=== PATIENT | female | born 2000 | race African-American/Black ===

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

== ENCOUNTER 2018-03-02 18:19 | Emergency (ER) | payer SELFPAY ==
[2018-03-02 19:13] LABS: EOSINOPHILS % (AUTO) 2.5 % (0.0-8.0); HEMATOCRIT 39.1 % (36-48); MEAN CORPUSCULAR HEMOGLOBIN 31.9 pg (27.0-33.0); MEAN CORPUSCULAR HGB CONC 33.6 g/dL (32.0-36.0); MEAN CORPUSCULAR VOLUME 94.9 fL (80-100); MONOCYTES % (AUTO) 23.6 % (3.0-13.0); NEUTROPHILS % (AUTO) 62.9 % (40.0-77.0); NUCLEATED RED BLOOD CELLS 0.1 % (0.0-0.19); PLATELET COUNT (AUTO) 398 K/uL (130-400); RED BLOOD CELL COUNT(AUTO) 4.13 MIL/uL (4.00-5.50)
[2018-03-02 19:35] LABS: CARBON DIOXIDE 28 mmol/L (21-32); CHLORIDE 108 mmol/L (101-111); CREATININE 0.9 mg/dL (0.5-1.5); GLOMERULAR FILTR. RATE CALC 104 mL/min (>60); GLUCOSE,RANDOM 91 mg/dL (70-105); POTASSIUM 4.3 mmol/L (3.5-5.1); SODIUM SERUM 146 mmol/L (136-145); UREA NITROGEN, BLOOD 11 mg/dL (7-18)
[2018-03-02 19:45] LABS: ALANINE AMINOTRANSFERASE 25 U/L (12-78); ALBUMIN 4.3 g/dL (3.5-5.0); ALCOHOL, BLOOD 156 mg/dL (0-10); ASPARTATE AMINOTRANSFERASE 29 U/L (10-37); BILIRUBIN,TOTAL 0.3 mg/dL (0.2-1.0); SALICYLATE 3.2 mg/dL (2.8-20.0); TOTAL PROTEIN, SERUM 8.4 g/dL (6.0-8.3)
[2018-03-02 19:57] LABS: ACETAMINOPHEN < 1 mcg/mL (10-30)
[2018-03-02 20:00] LABS: APPEARANCE,URINE Cloudy (CLEAR); BILIRUBIN,URINE Negative (NEGATIVE); COLOR,URINE Yellow (YELLOW); GLUCOSE, URINE (UA) Negative (NEGATIVE); KETONES,URINE Trace mg/dL (NEGATIVE); LEUKOCYTE ESTERASE ,URINE Small (NEGATIVE); NITRATE,URINE Negative (NEGATIVE); OCCULT BLOOD,URINE Moderate (NEGATIVE); PH,URINE 5.5 (5.0-8.0); PROTEIN,URINE POS 1+ (NEGATIVE)
[2018-03-02 20:02] LABS: HCG,QUAL RESULT NEGATIVE (NEGATIVE)
[2018-03-02 20:08] LABS: AMPHET/METH SCREEN,URINE NEGATIVE (NEGATIVE); BACTERIA,URINE Few /HPF (None Seen); BARBITURATE SCREEN, URINE NEGATIVE (NEGATIVE); BENZODIAZEPINES SCREEN,URINE POSITIVE (NEGATIVE); CANNABINOID SCREEN,URINE POSITIVE (NEGATIVE); COCAINE SCREEN,URINE NEGATIVE (NEGATIVE); MUCUS,URINE Many LPF (None Seen); OPIATE SCREEN,URINE NEGATIVE (NEGATIVE); PHENCYCLIDINE SCREEN,URINE NEGATIVE (NEGATIVE); SQUAMOUS EPITHELIAL CELL,UR 30-50 /HPF (0-2); WBC,URINE 0-1 /HPF (0-1)
== END 2018-03-03 04:54 | disposition home or self-care (01) ==
LOC: EDH 18:19
DX: F43.0 Acute stress reaction (principal); F10.10 Alcohol abuse, uncomplicated; F12.10 Cannabis abuse, uncomplicated; F13.10 Sedative, hypnotic or anxiolytic abuse, uncomplicated; E07.9 Disorder of thyroid, unspecified; F41.9 Anxiety disorder, unspecified; F32.9 Major depressive disorder, single episode, unspecified; F90.9 Attention-deficit hyperactivity disorder, unspecified type; Z88.8 Allergy status to other drugs, medicaments and biological substances; Y90.1 Blood alcohol level of 20-39 mg/100 ml
CPT/HCPCS: 36415 ×2; 80053; 80305; 81001; 81025; 85025; 99284; G0480 ×3; G0481

== ENCOUNTER 2018-06-27 13:03 | Emergency (ER) | payer OTHER ==
[2018-06-27 14:02] LABS: BASOPHILS % (AUTO) 0.5 % (0.0-5.0); HEMATOCRIT 40.1 % (36-48); LYMPHOCYTES % (AUTO) 21.5 % (21.0-51.0); MEAN CORPUSCULAR HEMOGLOBIN 31.8 pg (27.0-33.0); MEAN CORPUSCULAR HGB CONC 33.6 g/dL (32.0-36.0); MEAN CORPUSCULAR VOLUME 94.5 fL (80-100); MONOCYTES % (AUTO) 8.9 % (3.0-13.0); NEUTROPHILS % (AUTO) 66.1 % (40.0-77.0); PLATELET COUNT (AUTO) 297 K/uL (130-400); RED BLOOD CELL COUNT(AUTO) 4.25 MIL/uL (4.00-5.50); RED CELL DISTRIBUTION WIDTH 13.1 % (11.0-15.5); WHITE BLOOD COUNT (AUTO) 7.9 K/uL (4.8-10.8)
[2018-06-27 14:09] LABS: CREATININE 0.7 mg/dL (0.5-1.5); POTASSIUM 3.6 mmol/L (3.5-5.1)
[2018-06-27 14:12] LABS: APPEARANCE,URINE Turbid (CLEAR); BILIRUBIN,URINE Negative (NEGATIVE); COLOR,URINE Yellow (YELLOW); GLUCOSE, URINE (UA) Negative (NEGATIVE); KETONES,URINE Negative (NEGATIVE); LEUKOCYTE ESTERASE ,URINE Moderate (NEGATIVE); NITRATE,URINE Negative (NEGATIVE); OCCULT BLOOD,URINE Negative (NEGATIVE); PH,URINE 6.5 (5.0-8.0); PROTEIN,URINE Negative (NEGATIVE)
[2018-06-27 14:18] LABS: HCG,QUAL RESULT NEGATIVE (NEGATIVE)
[2018-06-27 14:22] LABS: BILIRUBIN,DIRECT 0.1 mg/dL (0.0-0.3); BILIRUBIN,TOTAL 0.5 mg/dL (0.2-1.0); THYROID STIMULATING HORMONE 5.12 uIU/mL (0.36-3.74); TOTAL PROTEIN, SERUM 7.4 g/dL (6.0-8.3)
[2018-06-27] MEDS ORDERED: KETOROLAC TROMETHAMINE 30MG/ML ONE (14:44)
[2018-06-27] MEDS ORDERED: ONDANSETRON HCL 4 MG/2 ML VIAL ONE (14:44)
[2018-06-27 14:50] LABS: AMORPHOUS SEDIMENT,UR Moderate /LPF (None Seen); BACTERIA,URINE Few /HPF (None Seen); CALCIUM OXALATE CRYSTALS,UR Few /LPF (None Seen); RBC,URINE None Seen /HPF (0-1); SQUAMOUS EPITHELIAL CELL,UR None Seen /HPF (0-2)
== END 2018-06-27 15:50 | disposition home or self-care (01) ==
LOC: EDH 13:03
DX: R93.2 Abnormal findings on diagnostic imaging of liver and biliary tract (principal); R10.10 Upper abdominal pain, unspecified; R19.7 Diarrhea, unspecified; R94.6 Abnormal results of thyroid function studies; F41.9 Anxiety disorder, unspecified; F90.9 Attention-deficit hyperactivity disorder, unspecified type; J45.909 Unspecified asthma, uncomplicated; F32.9 Major depressive disorder, single episode, unspecified; E07.9 Disorder of thyroid, unspecified; Z88.8 Allergy status to other drugs, medicaments and biological substances
CPT/HCPCS: 36415; 76705; 80048; 80076; 81001; 81025; 83690; 84443; 85025; 96361; 96374; 96375; 99285; J1885; J2405

== ENCOUNTER 2021-08-14 17:57 | Emergency (ER) | payer OTHER ==
[~2021-08-14] VITALS: Ht 160 cm; Wt 48.1 kg
[2021-08-14 19:23] LABS: BASOPHILS % (AUTO) 0.3 % (0.0-5.0); EOSINOPHILS % (AUTO) 2.4 % (0.0-8.0); HEMATOCRIT 37.9 % (36-48); LYMPHOCYTES % (AUTO) 24.3 % (21.0-51.0); MEAN CORPUSCULAR HGB CONC 33.5 g/dL (32.0-36.0); MEAN CORPUSCULAR VOLUME 92.4 fL (79-99); NEUTROPHILS % (AUTO) 61.5 % (40.0-77.0); PLATELET COUNT (AUTO) 341 K/uL (130-400); RED CELL DISTRIBUTION WIDTH 14.1 % (11.0-15.5); WHITE BLOOD COUNT (AUTO) 6.6 K/uL (4.8-10.8)
[2021-08-14 19:58] LABS: APPEARANCE,URINE CLOUDY (CLEAR); BILIRUBIN,URINE SMALL (NEGATIVE); COLOR,URINE RED (YELLOW); GLUCOSE, URINE (UA) NEGATIVE (NEGATIVE); KETONES,URINE NEGATIVE (NEGATIVE); LEUKOCYTE ESTERASE ,URINE NEGATIVE (NEGATIVE); NITRATE,URINE NEGATIVE (NEGATIVE); OCCULT BLOOD,URINE LARGE (NEGATIVE); PROTEIN,URINE 100 mg/dL (NEGATIVE)
[2021-08-14 20:00] LABS: HCG,QUAL RESULT NEGATIVE (NEGATIVE)
[2021-08-14 20:10] LABS: BACTERIA,URINE Rare /HPF (None Seen); MUCUS,URINE Rare LPF (None Seen); RBC,URINE 26-50 /HPF (0-1); SQUAMOUS EPITHELIAL CELL,UR Few /HPF (0-2); WBC,URINE 0-1 /HPF (0-1)
[2021-08-14] MEDS ORDERED: ONDA4TAB10 PO (21:15)
[2021-08-14] MEDS ORDERED: NAPR-1180 PO (21:15)
[2021-08-14] MEDS ORDERED: CYCL10TA16 PO (21:15)
[2021-08-14] MEDS ORDERED: MECL-226 PO (21:16)
[2021-08-14 21:25] VITALS: BP 122/78
[2021-08-14 22:03] LABS: CREATININE 0.7 mg/dL (0.5-1.5); POTASSIUM 3.2 mmol/L (3.5-5.1)
[2021-08-14 22:07] LABS: ALBUMIN 4.2 g/dL (3.5-5.0); BILIRUBIN,TOTAL 0.4 mg/dL (0.2-1.0); TOTAL PROTEIN, SERUM 8.1 g/dL (6.0-8.3)
== END 2021-08-14 21:33 | disposition home or self-care (01) ==
LOC: EDH 17:57
DX: S00.83XA Contusion of other part of head, initial encounter (principal); S20.229A Contusion of unspecified back wall of thorax, initial encounter; S20.219A Contusion of unspecified front wall of thorax, initial encounter; F07.81 Postconcussional syndrome; Z79.899 Other long term (current) drug therapy; Y08.89XA Assault by other specified means, initial encounter; Y93.89 Activity, other specified; Y92.89 Other specified places as the place of occurrence of the external cause; Y99.8 Other external cause status
CPT/HCPCS: 36415; 71045; 72070; 80053; 81001; 81025; 85025

== ENCOUNTER 2022-07-11 19:43 | Emergency (ER) | payer OTHER ==
[~2022-07-11] VITALS: Ht 160 cm; Wt 51.7 kg
[~2022-07-11 19:43] MED LIST: CYCL10TA16 PO; MECL-226 PO; NAPR-1180 PO; ONDA4TAB10 PO
[2022-07-11 21:03] LABS: BASOPHILS % (AUTO) 0.3 % (0.0-5.0); EOSINOPHILS % (AUTO) 0.8 % (0.0-8.0); HEMATOCRIT 38.5 % (36-48); LYMPHOCYTES % (AUTO) 20.2 % (21.0-51.0); MEAN CORPUSCULAR HEMOGLOBIN 31.4 pg (27.0-33.0); MEAN CORPUSCULAR HGB CONC 34.3 g/dL (32.0-36.0); MEAN CORPUSCULAR VOLUME 91.7 fL (79-99); NEUTROPHILS % (AUTO) 66.3 % (40.0-77.0); PLATELET COUNT (AUTO) 385 K/uL (130-400); RED CELL DISTRIBUTION WIDTH 12.3 % (11.0-15.5); WHITE BLOOD COUNT (AUTO) 10.7 K/uL (4.8-10.8)
[2022-07-11 21:17] LABS: APPEARANCE,URINE CLOUDY (CLEAR); BILIRUBIN,URINE NEGATIVE (NEGATIVE); COLOR,URINE YELLOW (YELLOW); GLUCOSE, URINE (UA) 50 mg/dL (NEGATIVE); KETONES,URINE 40 mg/dL (NEGATIVE); LEUKOCYTE ESTERASE ,URINE 25 Leu/uL (NEGATIVE); NITRATE,URINE NEGATIVE (NEGATIVE); OCCULT BLOOD,URINE NEGATIVE (NEGATIVE); PROTEIN,URINE 20 mg/dL (NEGATIVE); UROBILINOGEN,URINE 0.2 mg/dL (0.2-1.0)
[2022-07-11 21:33] LABS: BACTERIA,URINE MOD /HPF (None Seen); MUCUS,URINE MANY LPF (None Seen); SQUAMOUS EPITHELIAL CELL,UR FEW /HPF (0-2)
[2022-07-11] MEDS ORDERED: ACETAMINOPHEN 500 MG TABLET PO ONE (22:00)
[2022-07-11] MEDS ORDERED: CEPH500B PO (22:46)
[2022-07-11] MEDS ORDERED: PREN-155 PO (22:46)
[2022-07-11 22:50] VITALS: BP 125/75
== END 2022-07-11 22:56 | disposition home or self-care (01) ==
LOC: EDH 19:43
DX: O20.0 Threatened abortion (principal); O23.41 Unspecified infection of urinary tract in pregnancy, first trimester; N39.0 Urinary tract infection, site not specified; E03.9 Hypothyroidism, unspecified; Z79.899 Other long term (current) drug therapy; Z3A.01 Less than 8 weeks gestation of pregnancy
CPT/HCPCS: 36415; 76801; 81001; 81025; 84702; 85025; 86850; 86900; 86901; 87088

== ENCOUNTER 2023-01-11 09:07 | Emergency (ER) | payer MEDICAID ==
[~2023-01-11] VITALS: Ht 160 cm; Wt 49.4 kg
[~2023-01-11 09:07] MED LIST changes: +CEPH500B PO; +PREN-155 PO
[2023-01-11 10:05] LABS: BASOPHILS # (AUTO) 0.02 K/uL (0.00-0.20); BASOPHILS % (AUTO) 0.2 % (0.0-5.0); EOSINOPHILS # (AUTO) 0.12 K/uL (0.00-0.70); EOSINOPHILS % (AUTO) 1.5 % (0.0-8.0); HEMATOCRIT 34.1 % (36-48); IMMATURE GRANULOCYTE ABSOLUTE 0.04 K/uL (0-1); LYMPHOCYTES # (AUTO) 1.2 K/uL (1.0-4.8); LYMPHOCYTES % (AUTO) 14.9 % (21.0-51.0); MEAN CORPUSCULAR HEMOGLOBIN 31.6 pg (27.0-33.0); MEAN CORPUSCULAR HGB CONC 34.3 g/dL (32.0-36.0); MEAN CORPUSCULAR VOLUME 92.2 fL (79-99); MONOCYTES # (AUTO) 0.6 K/uL (0.1-1.0); MONOCYTES % (AUTO) 7.8 % (3.0-13.0); NEUTROPHILS # (AUTO) 6.2 K/uL (1.8-7.7); NEUTROPHILS % (AUTO) 75.1 % (40.0-77.0); PLATELET COUNT (AUTO) 308 K/uL (130-400); RED CELL DISTRIBUTION WIDTH 14.1 % (11.0-15.5); WHITE BLOOD COUNT (AUTO) 8.2 K/uL (4.8-10.8)
[2023-01-11 10:09] LABS: SARS-CoV-2, RNA, NAAT NEGATIVE SARS CoV-2 (NEGATIVE)
[2023-01-11 10:13] LABS: APPEARANCE,URINE CLEAR (CLEAR); BILIRUBIN,URINE NEGATIVE (NEGATIVE); COLOR,URINE LIGHT-YELLOW (YELLOW); GLUCOSE, URINE (UA) NEGATIVE (NEGATIVE); KETONES,URINE NEGATIVE (NEGATIVE); LEUKOCYTE ESTERASE ,URINE NEGATIVE Leu/uL (NEGATIVE); NITRATE,URINE NEGATIVE (NEGATIVE); OCCULT BLOOD,URINE NEGATIVE (NEGATIVE); PROTEIN,URINE 10 mg/dL (NEGATIVE); UROBILINOGEN,URINE 0.2 mg/dL (0.2-1.0)
[2023-01-11 10:14] LABS: HCG,QUALITATIVE URINE POSITIVE (NEGATIVE)
[2023-01-11 10:15] LABS: INFLUENZA TYPE A Negative For Type A (NEGATIVE); INFLUENZA TYPE B Negative For Type B (NEGATIVE)
[2023-01-11 10:15] LABS: CREATININE 0.6 mg/dL (0.5-1.5); POTASSIUM 3.9 mmol/L (3.5-5.1)
[2023-01-11 10:17] LABS: ADD UA MICROSCOPIC YES
[2023-01-11 10:20] LABS: ALBUMIN 3.5 g/dL (3.5-5.0); BILIRUBIN,TOTAL 0.3 mg/dL (0.2-1.0); TOTAL PROTEIN, SERUM 7.8 g/dL (6.0-8.3)
[2023-01-11 10:40] LABS: MUCUS,URINE RARE LPF (None Seen); RBC,URINE 0-1 /HPF (0-1); SQUAMOUS EPITHELIAL CELL,UR FEW /HPF (0-2)
[2023-01-11] MEDS ORDERED: ACETAMINOPHEN 325 MG TAB PO ONE (11:00)
[2023-01-11] MEDS ORDERED: ACET-2893 PO (11:20)
[2023-01-11 11:59] VITALS: BP 121/60; PULSE 88; RESP 18; O2SAT 98
== END 2023-01-11 12:01 | disposition home or self-care (01) ==
LOC: EDH 09:07
DX: O26.892 Other specified pregnancy related conditions, second trimester (principal); R51.9 Headache, unspecified; E03.9 Hypothyroidism, unspecified; Z3A.17 17 weeks gestation of pregnancy; Z20.822 Contact with and (suspected) exposure to COVID-19
CPT/HCPCS: 99284; 76805; 87635; 80053; 83690; 85025; 87804 ×2; 81001; 81025; 36415; C9803

== ENCOUNTER 2023-02-26 13:10 | Observation (INO) | payer MEDICAID ==
[~2023-02-26] VITALS: Ht 160 cm; Wt 54.0 kg
[~2023-02-26 13:10] MED LIST changes: +ACET-2893 PO
[2023-02-26 13:18] VITALS: BP 95/60; PULSE 91; RESP 16; O2SAT 100
[2023-02-26 14:10] LABS: APPEARANCE,URINE CLOUDY (CLEAR); BILIRUBIN,URINE NEGATIVE (NEGATIVE); COLOR,URINE YELLOW (YELLOW); GLUCOSE, URINE (UA) 70 mg/dL (NEGATIVE); KETONES,URINE NEGATIVE (NEGATIVE); LEUKOCYTE ESTERASE ,URINE 500 Leu/uL (NEGATIVE); NITRATE,URINE NEGATIVE (NEGATIVE); OCCULT BLOOD,URINE NEGATIVE (NEGATIVE); PH,URINE 6.5 (5.0-8.0); PROTEIN,URINE 50 mg/dL (NEGATIVE); UROBILINOGEN,URINE 0.2 mg/dL (0.2-1.0)
[2023-02-26 14:14] LABS: ADD UA MICROSCOPIC YES
[2023-02-26 14:17] LABS: BACTERIA,URINE FEW /HPF (None Seen); CALCIUM OXALATE CRYSTALS,UR RARE /LPF (None Seen); MUCUS,URINE MOD LPF (None Seen); OTHER CASTS, URINE 2 /LPF (None Seen); SQUAMOUS EPITHELIAL CELL,UR FEW /HPF (0-2); UNCLASSIFIED CRYSTAL 1 /HPF (None Seen)
[2023-02-26 14:37] LABS: COVID19 (SARS ANTIGEN RAPID) PRESUMPTIVE NEGATIVE (NEGATIVE); INFLUENZA TYPE A Negative For Type A (NEGATIVE); INFLUENZA TYPE B Negative For Type B (NEGATIVE)
[2023-02-26 14:46] LABS: AMPHET/METH SCREEN,URINE NEGATIVE (NEGATIVE); BARBITURATE SCREEN, URINE NEGATIVE (NEGATIVE); BENZODIAZEPINES SCREEN,URINE NEGATIVE (NEGATIVE); CANNABINOID SCREEN,URINE NEGATIVE (NEGATIVE); COCAINE SCREEN,URINE NEGATIVE (NEGATIVE); OPIATE SCREEN,URINE NEGATIVE (NEGATIVE); PHENCYCLIDINE SCREEN,URINE NEGATIVE (NEGATIVE)
== END 2023-02-26 15:07 | disposition home or self-care (01) ==
LOC: EDH 13:10 → LDH 13:11
PROVIDERS: ADMIT Internal Medicine; ATTEND Internal Medicine
DX: O99.512 Diseases of the respiratory system complicating pregnancy, second trimester (principal); O99.322 Drug use complicating pregnancy, second trimester; O99.344 Other mental disorders complicating childbirth; O26.892 Other specified pregnancy related conditions, second trimester; J02.9 Acute pharyngitis, unspecified; R10.30 Lower abdominal pain, unspecified; R09.81 Nasal congestion; J45.909 Unspecified asthma, uncomplicated; F12.90 Cannabis use, unspecified, uncomplicated; F41.8 Other specified anxiety disorders; Z3A.24 24 weeks gestation of pregnancy; Z79.899 Other long term (current) drug therapy
CPT/HCPCS: 80305; 87088; 87804 ×2; 87426; 81001; G0378 ×2; G0379

== ENCOUNTER 2023-03-14 12:04 | Observation (INO) | payer MEDICAID ==
[~2023-03-14] VITALS: Ht 160 cm; Wt 56.7 kg
[2023-03-14 13:14] LABS: APPEARANCE,URINE CLEAR (CLEAR); BILIRUBIN,URINE NEGATIVE (NEGATIVE); COLOR,URINE YELLOW (YELLOW); GLUCOSE, URINE (UA) 30 mg/dL (NEGATIVE); KETONES,URINE >=80 mg/dL (NEGATIVE); LEUKOCYTE ESTERASE ,URINE 75 Leu/uL (NEGATIVE); NITRATE,URINE NEGATIVE (NEGATIVE); OCCULT BLOOD,URINE NEGATIVE (NEGATIVE); PH,URINE 6.5 (5.0-8.0); PROTEIN,URINE 20 mg/dL (NEGATIVE); UROBILINOGEN,URINE 0.2 mg/dL (0.2-1.0)
[2023-03-14 13:16] LABS: ADD UA MICROSCOPIC YES
[2023-03-14 13:25] LABS: BACTERIA,URINE RARE /HPF (None Seen); MUCUS,URINE RARE LPF (None Seen); RBC,URINE 0-1 /HPF (0-1); SQUAMOUS EPITHELIAL CELL,UR FEW /HPF (0-2)
== END 2023-03-14 14:15 | disposition home or self-care (01) ==
LOC: LDH 12:06
PROVIDERS: ADMIT Internal Medicine; ATTEND Internal Medicine
DX: O26.852 Spotting complicating pregnancy, second trimester (principal); O26.892 Other specified pregnancy related conditions, second trimester; R10.9 Unspecified abdominal pain; O99.322 Drug use complicating pregnancy, second trimester; F12.90 Cannabis use, unspecified, uncomplicated; Z3A.26 26 weeks gestation of pregnancy
CPT/HCPCS: 87088; 81001; G0378 ×2; G0379

== ENCOUNTER 2023-05-19 14:15 | Observation (INO) | payer MEDICAID ==
[~2023-05-19] VITALS: Ht 160 cm; Wt 60.8 kg
[2023-05-19 14:19] VITALS: BP 113/71; PULSE 78; RESP 18
[2023-05-19 15:37] LABS: APPEARANCE,URINE CLEAR (CLEAR); BILIRUBIN,URINE NEGATIVE (NEGATIVE); COLOR,URINE LIGHT-YELLOW (YELLOW); GLUCOSE, URINE (UA) NEGATIVE (NEGATIVE); KETONES,URINE NEGATIVE (NEGATIVE); LEUKOCYTE ESTERASE ,URINE 250 Leu/uL (NEGATIVE); NITRATE,URINE NEGATIVE (NEGATIVE); OCCULT BLOOD,URINE NEGATIVE (NEGATIVE); PH,URINE 7.5 (5.0-8.0); PROTEIN,URINE NEGATIVE (NEGATIVE); UROBILINOGEN,URINE 0.2 mg/dL (0.2-1.0)
[2023-05-19 15:39] LABS: ADD UA MICROSCOPIC YES
[2023-05-19 15:41] LABS: MUCUS,URINE RARE LPF (None Seen); SQUAMOUS EPITHELIAL CELL,UR MOD /HPF (0-2)
[2023-05-19] MEDS: LACTATED RINGERS 1000ML IV SCH (16:05)
== END 2023-05-19 16:45 | disposition home or self-care (01) ==
LOC: EDH 14:15 → LDH 14:40
PROVIDERS: ADMIT Internal Medicine; ATTEND Internal Medicine
DX: O62.9 Abnormality of forces of labor, unspecified (principal); Z3A.36 36 weeks gestation of pregnancy; Z79.899 Other long term (current) drug therapy
CPT/HCPCS: 96360; 87088; 81001; G0378 ×2; G0379; J7120

== ENCOUNTER 2023-08-02 21:20 | Emergency (ER) | payer MEDICAID ==
[~2023-08-02] VITALS: Ht 160 cm; Wt 60.8 kg
[~2023-08-02 21:20] MED LIST changes: +ONDA-243 PO; -ONDA4TAB10 PO
[2023-08-02] MEDS ORDERED: ACETAMINOPHEN 500 MG TABLET PO ONE (21:30)
[2023-08-02 21:57] LABS: BASOPHILS # (AUTO) 0.02 K/uL (0.00-0.20); BASOPHILS % (AUTO) 0.1 % (0.0-5.0); EOSINOPHILS # (AUTO) 0.01 K/uL (0.00-0.70); EOSINOPHILS % (AUTO) 0.1 % (0.0-8.0); HEMATOCRIT 35.6 % (36-48); IMMATURE GRANULOCYTE ABSOLUTE 0.07 K/uL (0-1); LYMPHOCYTES % (AUTO) 6.6 % (21.0-51.0); MEAN CORPUSCULAR HGB CONC 34.8 g/dL (32.0-36.0); MONOCYTES # (AUTO) 1.4 K/uL (0.1-1.0); MONOCYTES % (AUTO) 9.4 % (3.0-13.0); NEUTROPHILS # (AUTO) 12.2 K/uL (1.8-7.7); NEUTROPHILS % (AUTO) 83.3 % (40.0-77.0); PLATELET COUNT (AUTO) 319 K/uL (130-400); RED BLOOD CELL COUNT(AUTO) 4.14 MIL/uL (4.00-5.50); RED CELL DISTRIBUTION WIDTH 15.8 % (11.0-15.5); WHITE BLOOD COUNT (AUTO) 14.7 K/uL (4.8-10.8)
[2023-08-02 22:01] LABS: APPEARANCE,URINE CLEAR (CLEAR); BILIRUBIN,URINE NEGATIVE (NEGATIVE); COLOR,URINE LIGHT-YELLOW (YELLOW); GLUCOSE, URINE (UA) NEGATIVE (NEGATIVE); KETONES,URINE NEGATIVE (NEGATIVE); LEUKOCYTE ESTERASE ,URINE NEGATIVE Leu/uL (NEGATIVE); NITRATE,URINE NEGATIVE (NEGATIVE); OCCULT BLOOD,URINE NEGATIVE (NEGATIVE); PH,URINE 7.5 (5.0-8.0); PROTEIN,URINE NEGATIVE (NEGATIVE); UROBILINOGEN,URINE 3 mg/dL (0.2-1.0)
[2023-08-02 22:04] LABS: CREATININE 0.9 mg/dL (0.5-1.0); OTHER CASTS, URINE 2 /LPF (None Seen); POTASSIUM 3.7 mmol/L (3.5-5.1); RBC,URINE 0-1 /HPF (0-1); SQUAMOUS EPITHELIAL CELL,UR FEW /HPF (0-2)
[2023-08-02] MEDS: IBUPROFEN 400 MG TABLET PO ONE (22:04)
[2023-08-02] MEDS: CEFTRIAXONE 1G VIAL IVPB ONE (22:05)
[2023-08-02 22:11] LABS: SARS-CoV-2, RNA, NAAT NEGATIVE SARS CoV-2 (NEGATIVE)
[2023-08-02 22:15] LABS: INFLUENZA TYPE A Negative For Type A (NEGATIVE); INFLUENZA TYPE B Negative For Type B (NEGATIVE)
[2023-08-02] MEDS ORDERED: AMOX1TAB16 PO (22:38)
[2023-08-02 22:51] VITALS: BP 122/72; PULSE 87; RESP 16; O2SAT 99
== END 2023-08-02 23:07 | disposition home or self-care (01) ==
LOC: EDH 21:20
DX: H70.91 Unspecified mastoiditis, right ear (principal); E03.9 Hypothyroidism, unspecified; Z20.822 Contact with and (suspected) exposure to COVID-19
CPT/HCPCS: 99283; 96374; 87635; 80048; 85025; 87804 ×2; 81001; 36415; J0696

== ENCOUNTER 2025-01-05 15:54 | Emergency (ER) | payer BC, MEDICAID ==
[~2025-01-05] VITALS: Ht 160 cm; Wt 60.3 kg
[~2025-01-05 15:54] MED LIST changes: -ACET-2893 PO; +ACET-3797 PO; +AMOX1TAB16 PO
--- NOTE | 2025-01-05 16:09 | ERN ---
ED Note History of Present Illness Stated Complaint: NAUSEA VOMITING Chief Complaint: Nausea,Vomiting,Diarrhea Time Seen by MD: 16:03 Dictation: PATIENT IS A 24-YEAR-OLD FEMALE COMING IN TODAY WITH A AN ACUTE ONSET OF EPIGASTRIC PAIN AND LEFT UPPER QUADRANT PAIN WITH NAUSEA VOMITING CRAMPING ONSET 11:00 THIS MORNING. SHE HAS NO FEVER NO CHILLS NO CHEST PAIN NO BACK PAIN NO SOB SHE STATES SHE IS ON CONTROL AND COULD NOT BE . THERE WAS FOCAL TENDERNESS TO THE LEFT UPPER QUADRANT IN TRIAGE. Allergies: Coded Allergies: No Known Allergies (Unverified Allergy, Unknown, 07/11/22) Home Meds Active Scripts Amoxicillin/Potassium Clav (Amox Tr-K Clv 875-125 mg Tab) 875 Mg-125 Mg Tablet, 1 EACH PO BID for 7 Days, #14 TAB Prov:GISELLE CASTANEDA MD 08/02/23 Acetaminophen (Acetaminophen ER) 650 Mg Tablet.er, 650 MG PO TID, #30 TAB Prov:RAHEEL YANES 01/11/23 Vit37/Iron/Folic Acid ([place] Chewable Tablet) 1 Each Tab.chew, 1 EACH PO DAILY for 30 Days, #30 TAB.CHEW Prov:MAYTE SANCHEZ 07/11/22 Cephalexin Monohydrate (Keflex) 500 Mg Cap, 500 MG PO BID for 7 Days, #14 CAP Prov:MAYTE SANCHEZ 07/11/22 Meclizine HCl (Meclizine HCl) 12.5 Mg Tablet, 25 MG PO TID, #30 TAB Prov:YONATAN JONES 08/14/21 Ondansetron (Ondansetron Odt) 4 Mg Tab.rapdis, 4 MG PO TID, #21 TAB Prov:YONATAN JONES 08/14/21 Cyclobenzaprine HCl (Flexeril) 10 Mg Tab, 10 MG PO BID, #30 TAB Prov:YONATAN JONES 08/14/21 Naproxen (Naprosyn) 500 Mg Tablet, 500 MG PO BIDPC, #60 TAB Prov:YONATAN JONES 08/14/21 Past Medical History Past Medical History: Hypothyroid Additional Past Medical Hx: THYROID PROBLEM Surgical History: None Family History: Negative Social History: Negative : 2 Para: 1 Aborts: 1 RN Note Reviewed/Agreed w/PFSH: Yes Review of System Dictation CONSTITUTIONAL: NEGATIVE EXCEPT FOR HPI HEAD/FACE: NEGATIVE EXCEPT FOR HPI EENT: NEGATIVE EXCEPT FOR HPI RESPIRATORY: NEGATIVE EXCEPT FOR HPI GASTROINTESTINAL/ABDOMINAL: NEGATIVE EXCEPT FOR HPI EPIGASTRIC AND LEFT UPPER QUADRANT PAIN WITH NAUSEA VOMITING GENITOURINARY: NEGATIVE EXCEPT FOR HPI MUSCULOSKELETAL: NEGATIVE EXCEPT FOR HPI INTEGUMENTARY: NEGATIVE EXCEPT FOR HPI NEUROLOGICAL/PSYCH: NEGATIVE EXCEPT FOR HPI HEMATOLOGIC/LYMPHATIC: NEGATIVE EXCEPT FOR HPI ALL SYSTEMS NEGATIVE, EXCEPT NOTED ABOVE. 13 POINT REVIEW OF SYSTEMS ASSESSED AND ALL NEGATIVE EXCEPT FOR ABOVE. Initial Vital Sign VS Vital Signs Date Time Temp Pulse Resp B/P (MAP) Pulse Ox O2 Delivery O2 Flow Rate FiO2 01/05/25 15:55 98.4 107 18 130/70 99 Room Air 0 01/05/25 19:00 21 Physical Exam Dictation VITAL SIGNS REVIEWED GENERAL APPEARANCE: ALERT, ORIENTED X 3, MODERATE ACUTE DISTRESS, WELL DE VELOPED, NOURISHED. HEAD AND FACE: NON-TRAUMATIC. EYES: PERRL, PINK CONJUNCTIVAS, EYELID NO TRAUMA, ANTERIOR CHAMBER WITH ARCUS SENILIS. EARS: PINNAS INTACT AND NO SIGNS OF TRAUMA OR ERYTHEMA EAR CANALS CLEAR AND NO DISCHARGE TM NO ERYTHEMA NOSE: NO DISCHARGE, NO BLEEDING. OROPHARYNX: MOUTH NORMAL, TONGUE PINK, PHARYNX CLEAR,NO ERYTHEMA, TONSILS NO EXUDATES, NO ABSCESSES NOTED, MUCOUS MEMBRANE MOIST NECK: SUPPLE, NON-TENDER, NO THYROMEGALY, NO MASSES, NO JVD, NO BRUITS BREAST:DEFERRED CHEST:NO TENDERNESS, NO CREPITUS, NO PARADOXICAL MOVEMENT, NO RETRACTIONS LUNGS:CLEAR, WELL-VENTILATED, SYMMETRIC, NO RALES, NO WHEEZING, NO RHONCHI, NO STRIDOR, GOOD BREATH SOUNDS BILATERALLY HEART: REGULAR RATE, REGULAR RHYTHM, NO MURMUR, NO GALLOPS VASCULAR: NO PERIPHERAL EDEMA, ABDOMEN: SOFT, POSITIVE BOWEL SOUNDS, NONDISTENDED, NO GUARDING, EPIGASTRIC AND LEFT UPPER QUADRANT PAIN TENDERNESS RECTAL: DEFERRED GENITAL: DEFERRED NEUROLOGICAL: NORMAL SPEECH, MOTOR FUNCTION INTACT, SENSORY FUNCTION INTACT MUSCULOSKELETAL: NECK NONTENDER, FULL RANGE OF MOTION, BACK NONTENDER, FULL RANGE OF MOTION, EXTREMITIES: NONTENDER, FULL RANGE OF MOTION SKIN: COLOR PINK, DRY, NO TURGOR, NO RASH, NO LACERATIONS, NO ABRASIONS, NO CONTUSIONS. LYMPHATIC: DEFERRED Results (Laboratory/Radiology) Laboratory/Radiology Laboratory Tests Test 01/05/25 16:45 01/05/25 21:29 White Blood Count 7.6 K/uL (4.8-10.8) Red Blood Count 4.42 MIL/uL (4.00-5.50) Hemoglobin 13.7 g/dL (12.0-16.0) Hematocrit 40.8 % (36-48) Mean Corpuscular Volume 92.3 fL (79-99) Mean Corpuscular Hemoglobin 31.0 pg (27.0-33.0) Mean Corpuscular Hemoglobin Concent 33.6 g/dL (32.0-36.0) Red Cell Distribution Width 13.2 % (11.0-15.5) Platelet Count 337 K/uL (130-400) Mean Platelet Volume 9.6 fL (7.5-10.5) Immature Granulocyte % (Auto) 0.3 % (0-1) Neutrophils (%) (Auto) 87.0 % (40.0-77.0) H Lymphocytes (%) (Auto) 7.2 % (21.0-51.0) L Monocytes (%) (Auto) 4.7 % (3.0-13.0) Eosinophils (%) (Auto) 0.7 % (0.0-8.0) Basophils (%) (Auto) 0.1 % (0.0-5.0) Neutrophils # (Auto) 6.7 K/uL (1.8-7.7) Lymphocytes # (Auto) 0.6 K/uL (1.0-4.8) L Monocytes # (Auto) 0.4 K/uL (0.1-1.0) Eosinophils # (Auto) 0.05 K/uL (0.00-0.70) Basophils # (Auto) 0.01 K/uL (0.00-0.20) Absolute Immature Granulocyte (auto 0.02 K/uL (0-1) Nucleated Red Blood Cells 0.0 % (0.0-0.19) White Cell Morphology Comment See comments Sodium Level 139 mmol/L (136-145) Potassium Level 3.4 mmol/L (3.5-5.1) L Chloride Level 104 mmol/L (101-111) Carbon Dioxide Level 26 mmol/L (21-32) Blood Urea Nitrogen 14 mg/dL (7-18) Creatinine 1.1 mg/dL (0.5-1.0) H Glomerular Filtration Rate Calc 71 mL/min (>90) Random Glucose 88 mg/dL (70-105) Total Calcium 8.7 mg/dL (8.5-10.1) Lipase 37 U/L (16-77) Serum Test, Qualitative NEGATIVE (NEGATIVE) Urine Color LIGHT-YELLOW (YELLOW) Urine Appearance CLEAR (CLEAR) Urine pH 5.5 (5.0-8.0) Urine Specific [place] 1.028 (1.001-1.031) Urine Protein 10 mg/dL (NEGATIVE) H Urine Glucose (UA) NEGATIVE mg/dL (NEGATIVE) Urine Ketones 60 mg/dL (NEGATIVE) H Urine Occult Blood NEGATIVE (NEGATIVE) Urine Nitrate NEGATIVE (NEGATIVE) Urine Bilirubin NEGATIVE mg/dL (NEGATIVE) Urine Urobilinogen 0.2 mg/dL (0.2-1.0) Urine Leukocyte Esterase NEGATIVE Calixto/uL Urine RBC 0-1 /HPF (0-1) Urine WBC 0-1 /HPF (0-1) Urine Squamous Epithelial Cells FEW /HPF (0-2) Urine Bacteria None /HPF (None Seen) PELVIC ULTRASOUND DEMONSTRATES NO OVARIAN MASS, POSITIVE FLOW TO BOTH OVARIES THERE IS NO LESIONS THERE WAS NO MASSES THERE WAS NO CYST. Labs Reviewed?: Yes ED Course ED Course Orders Procedure Category Date Status Time Testing, LAB 01/05/25 Complete Serum Hcg 16:05 Cbc With Differential LAB 01/05/25 Complete 16:05 Urinalysis Profile LAB 01/05/25 Complete 16:05 0.9%Nacl 1000ml (Ns PHA 01/05/25 Complete 1000ml) 16:30 Morphine 2mg Syg PHA 01/05/25 Complete (Morphine 2mg Syg) 16:30 Ondansetron 4mg Inj PHA 01/05/25 Complete (Zofran 4mg Inj) 16:30 Famotidine 20mg Vial PHA 01/05/25 Complete (Pepcid 20mg Vial) 16:30 Lipase LAB 01/05/25 Complete 16:05 Basic Metabolic Panel LAB 01/05/25 Complete 16:05 Lidocaine Hcl 2% PHA 01/05/25 Complete Viscous (Lidocaine Hcl 18:30 Mag/Alum/Simeth 30ml PHA 01/05/25 Complete (Maalox Plus 30ml) 18:30 Dicyclomine Hcl PHA 01/05/25 Complete (Bentyl 10mg/5ml 18:30 Ondansetron 4mg Inj PHA 01/05/25 Complete (Zofran 4mg Inj) 21:00 Us Pelvic Non-Ob US 01/05/25 Taken Limited 20:38 Dexamethasone 4mg/Ml PHA 01/05/25 Verified 1ml Vial (Dexametha 22:00 Ketorolac PHA 01/05/25 Verified Tromethamine 30mg/Ml 22:00 Current Medications Medications (Trade) Dose Ordered Sig/Ana Route PRN Reason Start Time Stop Time Status Last Admin Dose Admin Al Hydroxide/Mg Hydroxide (MAALox PLUS 30ML) 30 ml ONCE ONCE PO 01/05/25 18:30 01/05/25 18:31 DC 01/05/25 20:31 Dicyclomine HCl (Bentyl 10mg/5ml Syrup) 10 mg ONCE ONCE PO 01/05/25 18:30 01/05/25 18:31 DC 01/05/25 20:31 Famotidine (Pepcid 20mg Vial) 20 mg ONCE ONCE IV 01/05/25 16:30 01/05/25 16:31 DC 01/05/25 17:37 Lidocaine HCl (Lidocaine HCl 2% Viscous) 10 ml ONCE ONCE PO 01/05/25 18:30 01/05/25 18:31 DC 01/05/25 20:30 Morphine Sulfate (morPHINE 2MG SYG) 2 mg ONCE ONCE IVP 01/05/25 16:30 01/05/25 16:31 DC 01/05/25 17:38 Ondansetron HCl (zoFRAN 4MG INJ) 4 mg ONCE ONCE IVP 01/05/25 16:30 01/05/25 16:31 DC 01/05/25 17:38 Ondansetron HCl (zoFRAN 4MG INJ) 4 mg ONCE ONCE IVP 01/05/25 21:00 01/05/25 21:01 DC 01/05/25 21:16 Sodium Chloride 1,000 ml @ 0 mls/hr ONCE ONCE IV 01/05/25 16:30 01/05/25 16:31 DC 01/05/25 17:38 Vital Signs Date Time Temp Pulse Resp B/P (MAP) Pulse Ox O2 Delivery O2 Flow Rate FiO2 01/05/25 21:15 78 18 128/79 98 Room Air* 0 01/05/25 19:00 98.4 90 18 121/76 99 Room Air* 0 01/05/25 15:55 98.4 107 18 130/70 99 Room Air 0 2150/PATIENT NOW STATES HER PAIN IS LUMBAR AFTER DOING SQUATS THIS AFTERNOON LIFTS AND LEG EXTENSIONS. SHE WILL BE NOW TREATED WITH FOCUSED TWO LUMBAR PAIN DISCHARGED HOME TO FOLLOW UP WITH HER PRIMARY CARE DOCTOR TOMORROW. NO ACUTE ABDOMINAL FINDINGS EXCEPT GASTRITIS Medical Decision Making MDM MDM: DIFFERENTIAL DIAGNOSIS: GASTRITIS VERSUS GASTROENTERITIS/PANCREATITIS/LUMBAR STRAIN/OVARIAN CYST/OVARIAN MASS/UTI/ECTOPIC RATIONALE: TESTS CONSIDERED AND ORDERED SECONDARY TO SHARED DECISION MAKING I NCLUDE: LABS/RADIOLOGY PREVIOUS OUTSIDE RECORDS REVIEWED: OLD ER VISITS. RISK OF COMPLICATION AND/OR MORBIDITY OR MORTALITY OF PATIENT MANAGEMENT: NONE MEDICATIONS-PER MEDICATION RECONCILIATION NEED FOR HOSPITALIZATION: PATIENT DOES NOT MEET CRITERIA FOR HOSPITALIZATION. NONE NEED FOR EMERGENCY MAJOR/MINOR SURGERY: NO THERE ARE NO SOCIAL CONCERNS WITH THIS PATIENT. PRESCRIPTION DRUG MANAGEMENT IBUPROFEN/FLEXERIL/OMEPRAZOLE PRESCRIPTIONS WILL INCLUDE SYMPTOMATIC CARE PATIENT'S PRIOR EXTERNAL MEDICAL RECORDS FROM OTHER ER VISITS WERE REVIEWED BY ME INDICATED. PRIOR TESTING AND RESULTS FROM PREVIOUS VISITS WERE REVIEWED. PRIOR TESTS WERE TAKEN INTO ACCOUNT WITH MEDICAL DECISION MAKING AND RESOURCE UTILIZATION, INDEPENDENT HISTORIAN/HISTORIANS WERE USED TO OBTAIN COMPLETE MEDICAL HISTORY. I INDEPENDENTLY INTERPRETED THE TEST THAT WERE PERFORMED, RESULTS WERE REVIEWED BY ME AND CONSIDERED FINDINGS ON RADIOLOGY IF ORDERED. MEDICAL MANAGEMENT AND EXAMINATION INTERPRETATION DISCUSSIONS WERE HAD BY ME WITH OTHER QUALIFIED HEALTHCARE PROFESSIONALS INDICATED FOR THE PATIENT'S CARE. DX & DISP Disposition: Discharge Departure Impression: Primary Impression: Acute lumbar myofascial strain Additional Impressions: Acute gastritis, Hypokalemia Condition: Stable Scripts Omeprazole (Omeprazole) 40 Mg Capsule. 1 CAP PO DAILY for 30 Days, #30 CAP 0 Refills Prov: KM STEPHENS CREDIT ADMINISTRATION MANAGER 01/05/25 Cyclobenzaprine HCl (Cyclobenzaprine HCl) 10 Mg Tablet 1 TAB PO TID for muscle spasms, #30 TAB 0 Refills Prov: KM STEPHENSP 01/05/25 Ketorolac Tromethamine (Ketorolac Tromethamine) 10 Mg Tablet 1 TAB PO Q6HPRN PRN for pain, #20 TAB 0 Refills Prov: KM STEPHENS CREDIT ADMINISTRATION MANAGER 01/05/25 Additional Instructions: FOLLOW-UP WITH PRIMARY CARE PROVIDER IN 1 TO 2 DAYS. TAKE MEDICATIONS DIRECTED HERE IN THE EMERGENCY ROOM. OKAY TO CONTINUE HOME MEDICATIONS UNLESS OTHERWISE DISCUSSED DURING YOUR VISIT IN THE EMERGENCY ROOM TODAY. RETURN TO YOUR NEAREST EMERGENCY ROOM IF SYMPTOMS WORSEN OR IF THERE IS NO IMPROVEMENT. CALL 911 IF YOU NEED IMMEDIATE ASSISTANCE. TAKE TYLENOL OR MOTRIN [id number] NEEDED AND IF NO CONTRAINDICATIONS ARE PRESENT. INCREASE ORAL HYDRATION. A WOUND CULTURE OR URINE CULTURE WAS ORDERED HERE IN THE EMERGENCY ROOM DEPARTMENT PLEASE FOLLOW-UP WITH PRIMARY CARE PROVIDER AND ADVISE THEM TO GET REPEAT PORTS FROM OUR FACILITY. IF YOU HAD ANY NEIL WRAP/SPLINTS THAT WERE APPLIED HERE, PLEASE DO NOT REMOVE THEM UNTIL YOU SEE YOUR PRIMARY CARE OR SPECIALTY. NO WEIGHT TRAINING UNTIL CLEARED BY YOUR PRIMARY CARE DOCTOR. WARM COMPRESSES TO BACK THREE TO 4 TIMES A DAY. TAKE KETOROLAC AND FLEXERIL EVERY 8 HOURS FOR THE NEXT TWO DAYS. TAKE OMEPRAZOLE DIRECTED DAILY. SEE YOUR PRIMARY CARE DOCTOR FOR FOLLOW UP AND MANAGEMENT. Referrals: ANDRA MALAGON MD (PCP) Time of Disposition: 21:53 I have reviewed the case, and I agree with, Diagnosis and Plan KM STEPHENS Jan 05, 2025 16:09
[2025-01-05 16:49] LABS: IMMATURE GRANULOCYTE ABSOLUTE 0.02 K/uL (0-1); NUCLEATED RED BLOOD CELLS 0.0 % (0.0-0.19); PLATELET COUNT (AUTO) 337 K/uL (130-400); RED BLOOD CELL COUNT(AUTO) 4.42 MIL/uL (4.00-5.50); RED CELL DISTRIBUTION WIDTH 13.2 % (11.0-15.5); WHITE BLOOD COUNT (AUTO) 7.6 K/uL (4.8-10.8)
[2025-01-05 17:00] LABS: CREATININE 1.1 mg/dL (0.5-1.0); GLOMERULAR FILTR. RATE CALC 71.0 mL/min (>90); GLUCOSE,RANDOM 88.0 mg/dL (70-105); SODIUM SERUM 139.0 mmol/L (136-145); UREA NITROGEN, BLOOD 14.0 mg/dL (7-18)
[2025-01-05] MEDS: FAMOTIDINE 20MG VIAL IV ONE (17:37)
[2025-01-05] MEDS: 0.9%NACL 1000ML 1,000 ML IV ONE (17:38)
--- NOTE | 2025-01-05 19:04 | NUR ---
REPORT GIVEN TO GINA FRAZIER
[2025-01-05] MEDS: LIDOCAINE HCL 2% VISCOUS 15 ML UDCUP PO ONE (20:30)
[2025-01-05] MEDS: MAG/ALUM/SIMETH 30 ML UDCUP PO ONE (20:31)
[2025-01-05] MEDS: DICYCLOMINE HCL 10 MG/5 ML ML PO ONE (20:31)
[2025-01-05 21:41] LABS: APPEARANCE,URINE CLEAR (CLEAR); GLUCOSE, URINE (UA) NEGATIVE (NEGATIVE); LEUKOCYTE ESTERASE ,URINE NEGATIVE Leu/uL (NEGATIVE); NITRATE,URINE NEGATIVE (NEGATIVE); OCCULT BLOOD,URINE NEGATIVE (NEGATIVE)
[2025-01-05 21:44] LABS: ADD UA MICROSCOPIC YES
[2025-01-05 21:46] LABS: SQUAMOUS EPITHELIAL CELL,UR FEW /HPF (0-2)
[2025-01-05] MEDS ORDERED: KETO10TA2 PO (21:54)
[2025-01-05] MEDS ORDERED: OMEP40CA21 PO (21:54)
[2025-01-05] MEDS ORDERED: CYCL-309 PO (21:54)
--- NOTE | 2025-01-05 22:14 | HMCIMG ---
EXAM: US Pelvis, Complete. CLINICAL HISTORY: DIFFUSE LOWER PELVIC PAIN TECHNIQUE: Transvaginal and transabdominal pelvic ultrasound (complete) with image documentation. COMPARISON: None provided. FINDINGS: Limited examination due to bowel movement. ENDOMETRIUM: Normal thickness: 4 mm. UTERUS: Measures 6 x 3 x 5.2 cm. The uterus appears within normal limits. No uterine fibroid or other mass evident. Limited views of the fundus. RIGHT OVARY: Measures 2.2 x 1.8 x 1.6 cm. There appears to be normal Doppler flow on transabdominal images. No abnormal mass. LEFT OVARY: Measures 1.9 x 1.3 x 2.5 cm. There appears to be normal Doppler flow on transabdominal images. No abnormal mass. FREE FLUID: No free fluid. IMPRESSION: 1. No acute pelvic pathology. /Amita
[2025-01-05 22:23] VITALS: BP 128/76; PULSE 78; RESP 18; TEMP 98.4; O2SAT 98
== END 2025-01-05 22:26 | disposition home or self-care (01) ==
LOC: EDH 15:54
DX: S39.012A Strain of muscle, fascia and tendon of lower back, initial encounter (principal); K29.00 Acute gastritis without bleeding; E87.6 Hypokalemia; E03.9 Hypothyroidism, unspecified; X58.XXXA Exposure to other specified factors, initial encounter; Y93.89 Activity, other specified; Y92.89 Other specified places as the place of occurrence of the external cause; Y99.8 Other external cause status
CPT/HCPCS: 99284; 96374; 96375; 76857; 96361; 80048; 84703; 83690; 85025; 81001; 36415; 96376; J1100; J1885; J1308; J2270; J7030; J2405 ×2